=== PATIENT | female | born 1990 | race American Indian/Alaskan Native ===

== ENCOUNTER 2016-08-24 10:21 | Outpatient (CLI) | payer MEDICAID ==
[2016-08-24] MEDS ORDERED: VISTARIL PO PRN (12:49)
== END 2016-08-24 12:57 | disposition home or self-care (01) ==
LOC: TRG 10:21
PROVIDERS: ATTEND Obstetrics & Gynecology
DX: O77.9 Labor and delivery complicated by fetal stress, unspecified (principal); O47.1 False labor at or after 37 completed weeks of gestation; Z3A.37 37 weeks gestation of pregnancy
CPT/HCPCS: 59025; Q0177

== ENCOUNTER 2016-09-02 01:18 | Outpatient (CLI) | payer MEDICAID ==
[2016-09-02 01:35] VITALS: BP 110/73
--- NOTE | 2016-09-02 16:02 | Ultrasound Report ---
LIMITED OB ULTRASOUND: There is a [place] gestation with a heart rate of 126 beats per minute. The CHELSY is 21.3 cm which is within our normal range. The estimated gestational age is 39 weeks 1 day. BIOPHYSICAL PROFILE: 2 - breathing movements 2 - movements 2 - posture and tone 2 - Qualitative amniotic fluid volume 8 - TOTAL SCORE OF POSSIBLE 8 Heart Rate (bpm) 125
== END 2016-09-02 02:47 | disposition home or self-care (01) ==
LOC: TRG 01:18
PROVIDERS: ATTEND Obstetrics & Gynecology
DX: O26.893 Other specified pregnancy related conditions, third trimester (principal); O36.8130 Decreased fetal movements, third trimester, not applicable or unspecified; R10.9 Unspecified abdominal pain; O77.9 Labor and delivery complicated by fetal stress, unspecified; Z3A.39 39 weeks gestation of pregnancy
CPT/HCPCS: 59025; 76815; 76819

== ENCOUNTER 2016-09-03 13:16 | Inpatient (IN) | payer MEDICAID ==
[2016-09-03] MEDS ORDERED: SUBLIMAZE IV PRN (15:11)
[2016-09-03] MEDS ORDERED: ePHEDrine SULFATE IV PRN ×2 (15:11→18:28)
[2016-09-03] MEDS ORDERED: STADOL IV PRN (15:11)
[2016-09-03] MEDS ORDERED: BRETHINE SUB-Q PRN (15:11)
[2016-09-03] MEDS ORDERED: MINERAL OIL PO PRN (15:11)
--- NOTE | 2016-09-03 15:11 | History and Physical Report ---
History of Present Illness Date of examination: 09/03/16 Chief complaint: leaking and contractions @ 38+3wks History of present illness: EDC Confirmation: 09/14/2016 Past History : 2 Living Children: 0 Spont. Ab: 1 # 1 Delivery date: 09/02/2015 Delivery type: SAB Past Surgical History: negative Past Medical History Anesthesia Complications: negative Anemia: negative Autoimmune Disorder: negative Bleeding Disorder: negative Blood Transfusions: negative Breast Disease: negative Diabetes: negative Heart Disease: negative Hypertension: negative Hepatitis/Liver Disease: negative Kidney Disease/UTI: negative Neurologic/Epilepsy/Migraines: negative Phlebitis/Varicosities: negative Psychiatric: negative Pulmonary Disease/Asthma: negative Thyroid Disease: negative Hospitalizations: negative Surgery (Non-warning coordination meteorologist): negative Abnormal PAP: negative SHERWIN Exposure: negative Infertility: negative Uterine Anomaly: negative Uterine Surgery (not C/S): negative Other Gynecologic Problems: negative Infection History Hx of STD: chlamydia HIV Risk Eval: low risk Hepatitis B Risk Eval: low risk Personal hx. of genital herpes: no Partner hx. of genital herpes: no Rash, Viral, or Febrile illness since last LMP? no Varicella/Chicken Pox Status: Immunized TB Risk: no Infection History Comments: tx in Aug 2015 Genetic History Congenital Heart Defect: Mom: no Dad: no Suki Disease: Mom: no Dad: no Thalassemia Mom: no Dad: no Neural Tube Defect Mom: no Dad: no Down's Syndrome Mom: no Dad: no Bj-Sachs Mom: no Dad: no Sickle Cell Disease/Trait Mom: no Dad: no Hemophilia Mom: no Dad: no Muscular Dystrophy Mom: no Dad: no Cystic Fibrosis Mom: no Dad: no Yeny Chorea Mom: no Dad: no Mental Retardation Mom: no Dad: no Fragile X Mom: no Dad: no Other Genetic/Chromosomal Disorder Mom: no Dad: no Child w/other defect Mom: no Dad: no Enviromental Exposures Xray Exposure: no Medication, drug, or alcohol use since LMP: no Chemical/Other Exposure: no Exposure to Cat Liter: no Active Medications: TABS ( VIT-FE FUMARATE-FA TABS) Current Allergies (reviewed today): No known allergies Past History Past Medical History: no pertinent history - Obstetrical History Expected Date of Delivery: 09/14/16 Actual Gestation: 38 Week(s) 3 Day(s) : 2 Para: 0 Hx # Term Pregnancies: 0 Number of Pregnancies: 0 Spontaneous Abortions: 1 Induced : 0 Number of Living Children: 0 Medications and Allergies Allergies Allergy/AdvReac Type Severity Reaction Status Date / Time No Known Allergies Allergy Verified 03/26/16 15:24 Home Medications Medication Instructions Recorded Confirmed Last Taken Type Acetaminophen [Acetaminophen ER 650 mg PO Q8HR PRN #15 tablet.er 05/31/15 Unknown Rx TAB] Docusate Sodium [Colace CAP] 100 mg PO BID PRN #20 capsule 05/31/15 Unknown Rx Magnesium Citrate [Citrate of 300 ml PO ONCE #1 bottle 05/31/15 Unknown Rx Magnesia] Review of Systems All systems: negative - Vital Signs Vital signs: Vital Signs Pulse Pulse Ox 110 H 99 09/03/16 14:31 09/03/16 14:31 Temp Pulse Resp BP Pulse Ox 105 H 98 09/03/16 15:02 09/03/16 15:02 - Physical Exam Breasts: Positive: normal Cardiovascular: Regular rate Lungs: Positive: Clear to auscultation, Normal air movement Abdomen: Positive: normal appearance, soft Genitourinary (Female): Positive: normal external genitalia, normal perenium Vulva: both: normal Results All other labs normal. Laboratory Data-Patient Name: ORLANDO LAM Test Date Result Blood Type 03/10/2016 O Rh 03/10/2016 Positive Antibody Screen neg Rubella 03/10/2016 immune Serology (RPR) 08/11/2016 nonreactive HBsAg 03/10/2016 Negative Hemoglobin 05/26/2016 10.5 Hematocrit 05/26/2016 31.7 Platelets 03/10/2016 221 [id number] Chlamydia DNA 08/11/2016 Negative GC DNA/Culture 08/11/2016 Urine Culture 07/07/2016 Final report Group B Strep cult negative PAP HIV 08/11/2016 AFP/Quad Screen Glucola Test 3hr GTT (Fasting) 1 hr 2 hr 3 hr OPTION[facility] LAB[facility]-Patient Name:ORLANDO LAM Test Date Result Varicella Ab Sickle Cell 03/10/2016 Negative PPD Fibronectin Cystic Fibrosis Parvovirus TSH Free T4 Hepatitis C ALT AST Uric Acid Creatinine 24 hr Urine Protein BG Assessment and Plan 26y/o at 38+3 weeks arrived with leaking and contractions, plan to admit and augment with pitocin as needed. orders in EMR. Dr. Nkechi aware of admission - Patient Problems (1) 38 weeks gestation of Current Visit: Yes Status: Acute (2) SROM (spontaneous rupture of membranes) Current Visit: Yes Status: Acute Plan to address problem: watch for s/s infection limit SVE pitocin augmentation as needed
[2016-09-03 15:56] LABS: Hematocrit 36.4 % (30.3-42.9); Hemoglobin 11.9 gm/dl (10.1-14.3); Mean Corpuscular HGB Conc 33 % (30-34); Mean Corpuscular Hemoglobin 28 pg (28-32); Mean Corpuscular Volume 87 fl (79-97); Platelet Count 167 K/mm3 (140-440); Red Blood Count 4.21 M/mm3 (3.65-5.03); Red Cell Distribution Width 13.2 % (13.2-15.2); White Blood Count 10.4 K/mm3 (4.5-11.0)
[2016-09-03] MEDS ORDERED: PITOCin/NS 30 UNIT/500ML 500 ML IV SCH (16:00)
[2016-09-03] MEDS ORDERED: PITOCin/NS 20 UNIT/1000ML DRIP 1,000 ML IV SCH (16:00)
--- NOTE | 2016-09-03 16:37 | Progress Note ---
Assessment and Plan Patient breathing through ctx, plan to start bolus for epidural. Can have IV sedation while preparing for epidural. Anticipate , will reassess post epidural. - Patient Problems (1) 38 weeks gestation of Current Visit: Yes Status: Acute (2) SROM (spontaneous rupture of membranes) Current Visit: Yes Status: Acute Plan to address problem: light mec noted Forebag noted while placing IUPC, ruptured with moderate amount of fluid Subjective - Subjective Date of service: 09/03/16 Principal diagnosis: IUP @ 38+3, SROM, MEC Interval history: EDC Confirmation: 09/14/2016 Past History : 2 Living Children: 0 Spont. Ab: 1 # 1 Delivery date: 09/02/2015 Delivery type: SAB Past Surgical History: negative Past Medical History Anesthesia Complications: negative Anemia: negative Autoimmune Disorder: negative Bleeding Disorder: negative Blood Transfusions: negative Breast Disease: negative Diabetes: negative Heart Disease: negative Hypertension: negative Hepatitis/Liver Disease: negative Kidney Disease/UTI: negative Neurologic/Epilepsy/Migraines: negative Phlebitis/Varicosities: negative Psychiatric: negative Pulmonary Disease/Asthma: negative Thyroid Disease: negative Hospitalizations: negative Surgery (Non-gray mixing operator): negative Abnormal PAP: negative SHERWIN Exposure: negative Infertility: negative Uterine Anomaly: negative Uterine Surgery (not C/S): negative Other Gynecologic Problems: negative Infection History Hx of STD: chlamydia HIV Risk Eval: low risk Hepatitis B Risk Eval: low risk Personal hx. of genital herpes: no Partner hx. of genital herpes: no Rash, Viral, or Febrile illness since last LMP? no Varicella/Chicken Pox Status: Immunized TB Risk: no Infection History Comments: tx in Aug 2015 Genetic History Congenital Heart Defect: Mom: no Dad: no Suki Disease: Mom: no Dad: no Thalassemia Mom: no Dad: no Neural Tube Defect Mom: no Dad: no Down's Syndrome Mom: no Dad: no Bj-Sachs Mom: no Dad: no Sickle Cell Disease/Trait Mom: no Dad: no Hemophilia Mom: no Dad: no Muscular Dystrophy Mom: no Dad: no Cystic Fibrosis Mom: no Dad: no [place] Chorea Mom: no Dad: no Mental Retardation Mom: no Dad: no Fragile X Mom: no Dad: no Other Genetic/Chromosomal Disorder Mom: no Dad: no Child w/other defect Mom: no Dad: no Enviromental Exposures Xray Exposure: no Medication, drug, or alcohol use since LMP: no Chemical/Other Exposure: no Exposure to Cat Liter: no Active Medications: TABS ( VIT-FE FUMARATE-FA TABS) Current Allergies (reviewed today): No known allergies Patient reports: loss of fluid (SROM around time of admission per patient), movement normal, contractions Objective - Vital Signs Vital Signs: Vital Signs - 12hr 09/03/16 09/03/16 09/03/16 14:31 14:36 14:42 Pulse Rate 110 H 104 H 107 H Blood Pressure O2 Sat by Pulse 99 99 97 Oximetry 09/03/16 09/03/16 09/03/16 14:47 14:52 14:57 Pulse Rate 96 H 92 H 93 H Blood Pressure O2 Sat by Pulse 99 99 99 Oximetry 09/03/16 09/03/16 09/03/16 15:02 15:07 15:12 Pulse Rate 105 H 102 H 98 H Blood Pressure O2 Sat by Pulse 98 98 98 Oximetry 09/03/16 09/03/16 15:17 16:28 Pulse Rate 97 H 106 H Blood Pressure 132/71 O2 Sat by Pulse 99 98 Oximetry - Exam Breasts: normal Cardiovascular: Regular rate Lungs: Clear to auscultation, Normal air movement Abdomen: Present: normal appearance, soft Vulva: both: normal Uterus: Present: normal FHR: auscultation normal Uterine Contraction Monitor Mode: Internal Cervical Dilatation: 4 (forebag ruptures, light mec) Cervical Effacement Percentage: 90 station: -1 Uterine Contraction Pattern: Regular Uterine Tone Measurement Phase: Contraction Uterine Contraction Intensity: Moderate Extremities: normal Deep Tendon Reflex Grade: Normal +2 - Labs Labs: Laboratory Results - last 24 hr 09/03/16 09/03/16 15:22 15:22 WBC 10.4 RBC 4.21 Hgb 11.9 Hct 36.4 MCV 87 MCH 28 MCHC 33 RDW 13.2 Plt Count 167 Blood Type O POSITIVE
[2016-09-03] MEDS: LACTATED RINGERS 1,000 ML IV SCH ×3 (17:04→18:53)
[2016-09-03] MEDS ORDERED: ePHEDrine SULFATE ONE (17:56)
[2016-09-03] MEDS ORDERED: ZOFRAN ONE (18:21)
[2016-09-03] MEDS ORDERED: NARCAN 2 MG/2 ML IV PRN (18:28)
--- NOTE | 2016-09-03 18:28 | Anesthesia Consultation ---
Anesthesia Consult and Med Hx Date of service: 09/03/16 - Airway Anesthetic Teeth Evaluation: Good ROM Head & Neck: Adequate Mental/Hyoid Distance: Adequate Mallampati Class: Class II Intubation Access Assessment: Good - Pulmonary Exam CTA: Yes - Cardiac Exam Cardiac Exam: No Murmur - Pre-Operative Health Status ASA Pre-Surgery Classification: ASA2 Proposed Anesthetic Plan: Epidural - Pulmonary Hx Asthma: No COPD: No Hx Pneumonia: No - Cardiovascular System Hx Hypertension: No - Central Nervous System Hx Seizures: No Hx Psychiatric Problems: No - Endocrine Hx Renal Disease: No Hx End Stage Renal Disease: No Hx Hypothyroidism: No Hx Hyperthyroidism: No - Hematic Hx Anemia: No Hx Sickle Cell Disease: No - Other Systems Hx Alcohol Use: No
[2016-09-03] MEDS ORDERED: ZOFRAN IV PRN (18:44)
--- NOTE | 2016-09-03 18:52 | Progress Note ---
Assessment and Plan patient progressing well, comfortable post epidural. Anticipate . will reevaluate PRN. - Patient Problems (1) 38 weeks gestation of Current Visit: Yes Status: Acute (2) SROM (spontaneous rupture of membranes) Current Visit: Yes Status: Acute Subjective - Subjective Date of service: 09/03/16 Principal diagnosis: IUP @ 38+3, SROM, MEC Interval history: EDC Confirmation: 09/14/2016 Past History : 2 Living Children: 0 Spont. Ab: 1 # 1 Delivery date: 09/02/2015 Delivery type: SAB Past Surgical History: negative Past Medical History Anesthesia Complications: negative Anemia: negative Autoimmune Disorder: negative Bleeding Disorder: negative Blood Transfusions: negative Breast Disease: negative Diabetes: negative Heart Disease: negative Hypertension: negative Hepatitis/Liver Disease: negative Kidney Disease/UTI: negative Neurologic/Epilepsy/Migraines: negative Phlebitis/Varicosities: negative Psychiatric: negative Pulmonary Disease/Asthma: negative Thyroid Disease: negative Hospitalizations: negative Surgery (Non-group work program director): negative Abnormal PAP: negative SHERWIN Exposure: negative Infertility: negative Uterine Anomaly: negative Uterine Surgery (not C/S): negative Other Gynecologic Problems: negative Infection History Hx of STD: chlamydia HIV Risk Eval: low risk Hepatitis B Risk Eval: low risk Personal hx. of genital herpes: no Partner hx. of genital herpes: no Rash, Viral, or Febrile illness since last LMP? no Varicella/Chicken Pox Status: Immunized TB Risk: no Infection History Comments: tx in Aug 2015 Genetic History Congenital Heart Defect: Mom: no Dad: no Suki Disease: Mom: no Dad: no Thalassemia Mom: no Dad: no Neural Tube Defect Mom: no Dad: no Down's Syndrome Mom: no Dad: no Bj-Sachs Mom: no Dad: no Sickle Cell Disease/Trait Mom: no Dad: no Hemophilia Mom: no Dad: no Muscular Dystrophy Mom: no Dad: no Cystic Fibrosis Mom: no Dad: no Yeny Chorea Mom: no Dad: no Mental Retardation Mom: no Dad: no Fragile X Mom: no Dad: no Other Genetic/Chromosomal Disorder Mom: no Dad: no Child w/other defect Mom: no Dad: no Enviromental Exposures Xray Exposure: no Medication, drug, or alcohol use since LMP: no Chemical/Other Exposure: no Exposure to Cat Liter: no Active Medications: TABS ( VIT-FE FUMARATE-FA TABS) Current Allergies (reviewed today): No known allergies Patient reports: no new complaints Objective - Vital Signs Vital Signs: Vital Signs - 12hr 09/03/16 09/03/16 09/03/16 14:31 14:36 14:42 Temperature Pulse Rate 110 H 104 H 107 H Pulse Rate [ From Monitor] Respiratory Rate Blood Pressure Blood Pressure [Left Arm] O2 Sat by Pulse 99 99 97 Oximetry 09/03/16 09/03/16 09/03/16 14:47 14:52 14:57 Temperature Pulse Rate 96 H 92 H 93 H Pulse Rate [ From Monitor] Respiratory Rate Blood Pressure Blood Pressure [Left Arm] O2 Sat by Pulse 99 99 99 Oximetry 09/03/16 09/03/16 09/03/16 15:02 15:07 15:12 Temperature Pulse Rate 105 H 102 H 98 H Pulse Rate [ From Monitor] Respiratory Rate Blood Pressure Blood Pressure [Left Arm] O2 Sat by Pulse 98 98 98 Oximetry 09/03/16 09/03/16 09/03/16 15:17 16:28 16:30 Temperature 97.8 F Pulse Rate 97 H 106 H Pulse Rate [ 72 From Monitor] Respiratory 18 Rate Blood Pressure 132/71 Blood Pressure 132/71 [Left Arm] O2 Sat by Pulse 99 98 99 Oximetry 09/03/16 09/03/16 09/03/16 16:33 16:38 16:43 Temperature Pulse Rate 82 84 79 Pulse Rate [ From Monitor] Respiratory Rate Blood Pressure Blood Pressure [Left Arm] O2 Sat by Pulse 98 99 96 Oximetry 09/03/16 09/03/16 09/03/16 16:48 16:53 16:58 Temperature Pulse Rate 88 72 83 Pulse Rate [ From Monitor] Respiratory Rate Blood Pressure Blood Pressure [Left Arm] O2 Sat by Pulse 98 97 99 Oximetry 09/03/16 09/03/16 09/03/16 17:03 17:08 17:13 Temperature Pulse Rate 83 89 85 Pulse Rate [ From Monitor] Respiratory Rate Blood Pressure Blood Pressure [Left Arm] O2 Sat by Pulse 97 98 100 Oximetry 09/03/16 09/03/16 09/03/16 17:18 17:23 17:28 Temperature Pulse Rate 74 85 91 H Pulse Rate [ From Monitor] Respiratory Rate Blood Pressure Blood Pressure [Left Arm] O2 Sat by Pulse 98 98 99 Oximetry 0109/03/16 09/03/16 17:33 17:38 17:43 Temperature Pulse Rate 93 H 93 H 100 H Pulse Rate [ From Monitor] Respiratory Rate Blood Pressure Blood Pressure [Left Arm] O2 Sat by Pulse 98 99 100 Oximetry 09/03/16 09/03/16 09/03/16 17:48 17:53 17:54 Temperature Pulse Rate 113 H 104 H 112 H Pulse Rate [ From Monitor] Respiratory Rate Blood Pressure Blood Pressure [Left Arm] O2 Sat by Pulse 99 95 94 Oximetry 09/03/16 09/03/16 09/03/16 17:58 18:03 18:05 Temperature Pulse Rate 91 H 102 H 114 H Pulse Rate [ From Monitor] Respiratory Rate Blood Pressure Blood Pressure [Left Arm] O2 Sat by Pulse 99 100 90 Oximetry 09/03/16 09/03/16 09/03/16 18:08 18:09 18:11 Temperature Pulse Rate 103 H 91 H 102 H Pulse Rate [ From Monitor] Respiratory Rate Blood Pressure 126/72 131/77 Blood Pressure [Left Arm] O2 Sat by Pulse 98 Oximetry 09/03/16 09/03/16 09/03/16 18:13 18:15 18:17 Temperature Pulse Rate 113 H 94 H 97 H Pulse Rate [ From Monitor] Respiratory Rate Blood Pressure 138/73 131/67 133/70 Blood Pressure [Left Arm] O2 Sat by Pulse 97 Oximetry 09/03/16 09/03/16 09/03/16 18:18 18:19 18:21 Temperature Pulse Rate 83 90 89 Pulse Rate [ From Monitor] Respiratory Rate Blood Pressure 127/65 123/68 Blood Pressure [Left Arm] O2 Sat by Pulse 99 Oximetry 09/03/16 09/03/16 09/03/16 18:23 18:25 18:27 Temperature Pulse Rate 133 H 129 H 125 H Pulse Rate [ From Monitor] Respiratory Rate Blood Pressure 124/69 121/58 91/50 Blood Pressure [Left Arm] O2 Sat by Pulse 98 Oximetry 09/03/16 09/03/16 09/03/16 18:29 18:30 18:31 Temperature Pulse Rate 103 H 94 H 88 Pulse Rate [ From Monitor] Respiratory Rate Blood Pressure 104/55 98/58 Blood Pressure [Left Arm] O2 Sat by Pulse 97 Oximetry 09/03/16 09/03/16 09/03/16 18:35 18:39 18:40 Temperature Pulse Rate 93 H 92 H 98 H Pulse Rate [ From Monitor] Respiratory Rate Blood Pressure 101/51 Blood Pressure [Left Arm] O2 Sat by Pulse 96 92 97 Oximetry 09/03/16 09/03/16 18:41 18:43 Temperature Pulse Rate 87 77 Pulse Rate [ From Monitor] Respiratory Rate Blood Pressure 95/50 97/53 Blood Pressure [Left Arm] O2 Sat by Pulse Oximetry - Exam Breasts: normal Cardiovascular: Regular rate Lungs: Clear to auscultation, Normal air movement Abdomen: Present: normal appearance, soft Vulva: both: normal Uterus: Present: normal FHR: auscultation normal, category 1 Uterine Contraction Monitor Mode: Internal Cervical Dilatation: 7 Cervical Effacement Percentage: 100 station: 0 Uterine Contraction Pattern: Regular Uterine Tone Measurement Phase: Contraction Uterine Contraction Intensity: Moderate Extremities: normal - Labs Labs: Laboratory Results - last 24 hr 09/03/16 09/03/16 15:22 15:22 WBC 10.4 RBC 4.21 Hgb 11.9 Hct 36.4 MCV 87 MCH 28 MCHC 33 RDW 13.2 Plt Count 167 Blood Type O POSITIVE Antibody Screen Negative
[2016-09-03] MEDS ORDERED: fentaNYL-BUPIV 2 MCG/ML-0.125% 100 ML EPIDURAL SCH (19:00)
--- NOTE | 2016-09-03 22:21 | Procedure Note ---
OB Delivery Note - Delivery Date of Delivery: 09/03/16 ( female) Cement Mason Apprentice: KIRSTIE AGARWAL Estimated blood loss: 300cc - Vaginal Delivery presentation: vertex Delivery position: OA Intrapartum events: meconium (thin and light) Delivery induction: none Delivery augmentation: rupture of membranes Delivery monitor: external FHT, internal uterine Route of delivery: Delivery placenta: spontaneous Delivery cord: 3 umbilical vessels Delivery laceration: 1st degree Delivery repair: vicryl Anesthesia: epidural Delivery comments: female infant del over intact perineum, vigorous, placed on mother's abd. 3 vessel cord clamped and cut. cord blood collected. Placenta delivered intact. 8- 10cm solid mass noted in placenta, placenta sent to pathology. Pit to IVF, 1st vag/juan a lac repaired in the usual fashion. EBL 300, Apgars 8/9, infant's weight 6#1oz. mother and infant remain LDR stable. - A at 1 minute: 8 at 5 minutes: 9 Gender: Female (6#1oz)
[2016-09-04] MEDS ORDERED: TYLENOL PO PRN (00:20)
[2016-09-04] MEDS ORDERED: SODIUM CHLORIDE FLUSH SYRINGE 10 ML IV NR (00:20)
[2016-09-04] MEDS ORDERED: BENADRYL PO PRN (00:20)
[2016-09-04] MEDS ORDERED: TUCKS PAD TP PRN (00:20)
[2016-09-04] MEDS ORDERED: MILK OF MAGNESIA PO PRN (00:20)
[2016-09-04] MEDS ORDERED: PHENERGAN PO PRN (00:20)
[2016-09-04] MEDS ORDERED: LANSINOH TP PRN (00:20)
[2016-09-04] MEDS ORDERED: DULCOLAX PR PRN (00:20)
[2016-09-04] MEDS ORDERED: PITOCin/NS 20 UNIT/1000ML DRIP 1,000 ML IV SCH (00:20)
[2016-09-04] MEDS ORDERED: DERMOPLAST TP PRN (00:20)
[2016-09-04] MEDS: MOTRIN PO SCH ×4 (00:50→21:18)
[2016-09-04] MEDS ORDERED: BOOSTRIX IM ONE (06:00)
[2016-09-04] MEDS: COLACE PO SCH ×2 (09:43→21:19)
[2016-09-04] MEDS: PRENATAL VITAMIN PO SCH (09:43)
[2016-09-04] MEDS: NORCO 5/325 PO PRN ×2 (09:44→20:27)
[2016-09-04 11:20] LABS: Hematocrit 32.8 % (30.3-42.9); Hemoglobin 10.6 gm/dl (10.1-14.3)
[2016-09-04] MEDS ORDERED: FLUARIX QUAD 2016-2017(36 MOS+) IM ONE (12:00)
--- NOTE | 2016-09-04 12:05 | Progress Note ---
Assessment and Plan - Patient Problems (1) (normal spontaneous vaginal delivery) Current Visit: Yes Status: Acute Plan to address problem: Patient is doing well day 1 day 1 hematocrit is 32.8%. Patient is breast-feeding. Desires oral contraceptives for . Subjective - Subjective Date of service: 09/04/16 Principal diagnosis: IUP @ 38+3, SROM, MEC Patient reports: appetite normal, voiding normally, pain well controlled [place]: doing well Objective - Vital Signs Latest vital signs: Vital Signs Temp Pulse Pulse Resp BP BP Pulse Ox 09/04/16 08:34 98.6 F 76 20 103/63 09/04/16 04:40 98.1 F 87 20 115/70 09/03/16 23:50 98.0 F 67 20 112/79 09/03/16 23:10 63 104/65 09/03/16 22:55 80 108/75 09/03/16 22:41 86 114/72 09/03/16 22:26 68 98/53 09/03/16 22:10 102 H 114/63 09/03/16 21:55 91 H 103/56 09/03/16 21:51 97.5 F L 09/03/16 21:50 94 H 107/74 09/03/16 21:35 90 100 09/03/16 21:30 110 H 98 09/03/16 21:25 76 100 09/03/16 21:21 88 105/56 09/03/16 21:20 95 H 99 09/03/16 21:15 100 H 99 09/03/16 21:10 97 H 99 09/03/16 21:05 111 H 98 09/03/16 21:00 97 H 99 09/03/16 20:55 76 100 09/03/16 20:51 85 97/56 09/03/16 20:50 100 H 95 09/03/16 20:45 81 100 09/03/16 20:40 105 H 94 09/03/16 20:35 101 H 99 09/03/16 20:30 85 100 09/03/16 20:25 88 99 09/03/16 20:21 82 98/54 09/03/16 20:20 74 99 09/03/16 20:15 70 100 09/03/16 20:10 86 99 09/03/16 20:07 82 88 09/03/16 20:05 81 97 09/03/16 20:00 110 H 97 09/03/16 19:55 74 98 09/03/16 19:50 86 106/70 99 09/03/16 19:45 73 98 09/03/16 19:40 83 99 09/03/16 19:35 79 99 09/03/16 19:33 71 106/67 09/03/16 19:30 97.2 F L 89 100 09/03/16 19:25 90 99 09/03/16 19:20 72 74 L 09/03/16 19:15 89 98 09/03/16 19:10 82 100 09/03/16 19:05 87 97 09/03/16 19:00 84 97 09/03/16 18:55 89 96 09/03/16 18:52 18 09/03/16 18:50 82 96 09/03/16 18:47 99 H 100/56 09/03/16 18:45 84 104/60 96 09/03/16 18:43 77 97/53 09/03/16 18:41 87 95/50 09/03/16 18:40 98 H 97 09/03/16 18:39 92 H 101/51 92 09/03/16 18:35 93 H 96 09/03/16 18:31 88 98/58 09/03/16 18:30 94 H 97 09/03/16 18:29 103 H 104/55 09/03/16 18:27 125 H 91/50 09/03/16 18:25 129 H 121/58 98 09/03/16 18:23 133 H 124/69 09/03/16 18:21 89 123/68 09/03/16 18:19 90 127/65 09/03/16 18:18 83 99 09/03/16 18:17 97 H 133/70 09/03/16 18:15 94 H 131/67 09/03/16 18:13 113 H 138/73 97 09/03/16 18:11 102 H 131/77 09/03/16 18:09 91 H 126/72 09/03/16 18:08 103 H 98 09/03/16 18:05 114 H 90 09/03/16 18:03 102 H 100 09/03/16 17:58 91 H 99 09/03/16 17:54 112 H 94 09/03/16 17:53 104 H 95 09/03/16 17:48 113 H 99 09/03/16 17:43 100 H 100 09/03/16 17:38 93 H 99 09/03/16 17:33 93 H 98 09/03/16 17:28 91 H 99 09/03/16 17:23 85 98 09/03/16 17:18 74 98 09/03/16 17:13 85 100 09/03/16 17:08 89 98 09/03/16 17:03 83 97 09/03/16 16:58 83 99 09/03/16 16:53 72 97 09/03/16 16:48 88 98 09/03/16 16:43 79 96 09/03/16 16:38 84 99 09/03/16 16:33 82 98 09/03/16 16:30 97.8 F 72 18 132/71 99 09/03/16 16:28 106 H 132/71 98 09/03/16 15:17 97 H 99 09/03/16 15:12 98 H 98 09/03/16 15:07 102 H 98 09/03/16 15:02 105 H 98 09/03/16 14:57 93 H 99 09/03/16 14:52 92 H 99 09/03/16 14:47 96 H 99 09/03/16 14:42 107 H 97 09/03/16 14:36 104 H 99 09/03/16 14:31 110 H 99 Intake and Output 09/03/16 09/04/16 09/04/16 22:59 06:59 14:59 Intake Total 2900 760 480 Output Total 500 900 Balance 2400 -140 480 Intake: IV 2900 520 Lactated Ringers 1,000 ml 2400 @ 125 mls/hr IV DIRECT BREE Rx#:[id number] PITOCin/NS 20 UNIT/1000ML 520 DRIP 1,000 ML @ 125 mls/ hr IV DIRECT BREE Rx#: [id number] PITOCin/NS 30 UNIT/500ML 500 500 ML @ 4 mls/hr IV TITR BREE Rx#:[id number] Oral 480 Intake, Free Water 240 Output: Urine 500 900 Indwelling Catheter 500 Void 900 Other: Total, Intake Amount 480 Total, Output Amount 500 900 # Voids Void 1 Estimated Blood Loss 300 - Exam Breasts: Present: deferred Cardiovascular: Present: Regular rate Lungs: Present: Normal air movement Abdomen: Present: normal appearance, soft Uterus: Present: normal, firm, fundal height below umbilicus Extremities: Present: edema
[2016-09-05] MEDS: MOTRIN PO SCH (05:50)
[2016-09-05] MEDS: NORCO 5/325 PO PRN (05:51)
--- NOTE | 2016-09-05 09:21 | Discharge Summary ---
Providers - Providers Date of Admission: 09/03/16 15:33 Date of discharge: 09/05/16 Attending physician: MADELEINE BILLS 09/04/16 00:20 Consult to Tool Machine Setup Operator [CONS] Routine Reason For Exam: assistance with , SNS Primary care physician: MADELEINE BILLS Hospitalization Reason for admission: active labor Delivery: Laceration: 1st degree Other procedures: none Discharge diagnosis: IUP at term delivered [place] baby: female Hospital course: Patient was admitted underwent a normal spontaneous vaginal delivery. Her course was benign. She was afebrile throughout her stay. Her day 1 hematocrit was 32.8. Condition at discharge: Good Disposition: DISCHARGED TO HOME OR SELFCARE - Discharge Diagnoses (1) (normal spontaneous vaginal delivery) Status: Acute Plan - Discharge Medications Prescriptions: Ferrous Sulfate [Feosol 325 MG tab] 325 mg PO BID #60 tablet Ibuprofen [Motrin 800 MG tab] 800 mg PO Q6H PRN #30 tablet PRN Reason: Pain - Provider Discharge Summary Activity: routine, no heavy lifting 4 weeks Diet: routine Instructions: routine Additional instructions: [] Smoking cessation referral if applicable(refer to patient education folder for contact #) [] Refer to [facility]'s [facility] Booklet Call your doctor immediately for: * Fever > 100.5 * Heavy vaginal bleeding ( >1 pad per hour) * Severe persistent headache * Shortness of breath * Reddened, hot, painful area to leg or breast * Drainage or odor from incision. * Keep incision clean and dry at all times and follow doctor's instructions regarding bathing/showering
[2016-09-05 09:29] VITALS: BP 109/67
[2016-09-05] MEDS: PRENATAL VITAMIN PO SCH (10:07)
== END 2016-09-05 11:20 | disposition home or self-care (01) | DRG 775 ==
LOC: TRG 13:16 → LD 15:33 → OB 23:34
PROVIDERS: ADMIT Obstetrics & Gynecology; ATTEND Obstetrics & Gynecology
PROC: 10E0XZZ Delivery of Products of Conception, External Approach (ICD-10-PCS; principal; 2016-09-03)
PROC: 3E0S3CZ (ICD-10-PCS; 2016-09-03)
PROC: 00HU33Z Insertion of Infusion Device into Spinal Canal, Percutaneous Approach (ICD-10-PCS; 2016-09-03)
PROC: 0HQ9XZZ Repair Perineum Skin, External Approach (ICD-10-PCS; 2016-09-03)
DX: O77.0 Labor and delivery complicated by meconium in amniotic fluid (principal); O70.0 First degree perineal laceration during delivery; Z3A.38 38 weeks gestation of pregnancy; Z37.0 Single live birth
CPT/HCPCS: 36415; 85014; 85018; 85027; 86850; 86900; 86901; 88307; 90686; A6250; J2405; J2590; J3010; J7120